=== PATIENT | male | born 1960 | race Caucasian/White ===

== ENCOUNTER 2019-03-25 10:34 | Emergency (ER) | payer OTHER ==
[~2019-03-25] VITALS: Ht 185.4 cm; Wt 100.0 kg
[2019-03-25] MEDS ORDERED: ONDANSETRON 4 MG ORAL DISINTEGRATING TAB (Q0162 PER 1MG) PO ONE (12:00)
[2019-03-25] MEDS ORDERED: PERCOCET 5MG/325MG TAB PO ONE (12:00)
--- NOTE | 2019-03-25 12:26 | REP ---
CT Head without contrast HISTORY: Fall COMPARISON: None There is no intraparenchymal hemorrhage, acute infarct, mass or midline shift. The ventricular system is normal in appearance. There is no extra cerebral collection. There is no fracture. The visualized sinuses are clear. IMPRESSION: There is no intracranial lesion. Electronically Signed by Bhavin Ashton MD 03/25/2019 12:18 P
--- NOTE | 2019-03-25 12:33 | REP ---
CT cervical spine without contrast HISTORY: Fall COMPARISON: None There is no acute fracture . Disc bulges are present at the C3-4 and C4-5 levels. Disc bulges with associated osteophyte formation are present at the C5-6 through C7-T1 levels. There are 2 mm of retrolisthesis of C5 on six and C6-7. There is minimal to mild narrowing of the spinal canal. Uncinate process and/or facet hypertrophy are present at the C3-4 through C7-T1 levels. These findings produce minimal to moderate narrowing of the neural foramina. The C3-4 through C7-T1 intervertebral discs are decreased in height. Vacuum phenomenon is present at the C5-6 through C7-T1 levels. These findings are consistent with disc degeneration. IMPRESSION: 1. There is no acute fracture. 2. There is cervical spondylosis at the C3-4 through C7-T1 levels. Electronically Signed by Bhavin Ashton MD 03/25/2019 12:23 P
[2019-03-25] MEDS ORDERED: GABA-843 PO (13:46)
[2019-03-25] MEDS ORDERED: TRAM50TA2 PO (13:46)
[2019-03-25 14:00] VITALS: BP 117/69
--- NOTE | 2019-03-25 15:44 | REP ---
Right shoulder: Three views. History: Injury in a fall. Findings: The right glenohumeral and acromioclavicular joints are normally aligned. There is osteoarthritis in both articulations. Fragmented spurring is seen at the AC joint with some subcortical cyst formation. No fracture is seen. Periarticular soft tissues are unremarkable. Impression: Osteoarthritis at the AC and glenohumeral articulations. No traumatic abnormality noted. Electronically Signed by Edgard Whittaker MD 03/25/2019 05:24 P
== END 2019-03-25 14:03 | disposition home or self-care (01) ==
LOC: M ED 10:34
DX: S49.91XA Unspecified injury of right shoulder and upper arm, initial encounter (principal); S16.1XXA Strain of muscle, fascia and tendon at neck level, initial encounter; X58.XXXA Exposure to other specified factors, initial encounter; Y92.89 Other specified places as the place of occurrence of the external cause; J44.9 Chronic obstructive pulmonary disease, unspecified; F41.9 Anxiety disorder, unspecified
CPT/HCPCS: 70450; 72125; 73030; 99284; Q0162